=== PATIENT | female | born 1950 | race Caucasian/White ===

== ENCOUNTER 2017-05-18 08:01 | Day surgery (SDC) | payer BC ==
[~2017-05-18] VITALS: Ht 177.8 cm; Wt 107.0 kg
[~2017-05-18 08:01] MED LIST: CEFAZOLIN SOD 1 GM/ ISO 50 ML PREMIX IV ONE
[2017-05-18] MEDS ORDERED: LR 1,000 ML IV SCH ×2 (13:48→14:15)
[2017-05-18] MEDS ORDERED: METOCLOPRAMIDE HCL 10 MG/2 ML VIAL IVP PRN ×2 (14:00→14:15)
[2017-05-18] MEDS ORDERED: MIDAZOLAM HCL 5 MG/5 ML VIAL IVP PRN (14:00)
[2017-05-18] MEDS ORDERED: MORPHINE SULFATE 10 MG/ML VIAL IVP PRN ×3 (14:00)
[2017-05-18] MEDS ORDERED: MORPHINE 4 MG/ML INJ. SYRINGE IVP PRN ×3 (14:15)
[2017-05-18] MEDS ORDERED: D5/0.45 NS 1,000 ML IV SCH (14:52)
[2017-05-18] MEDS ORDERED: MORPHINE SULFATE 10 MG/ML VIAL ONE (15:11)
[2017-05-18] MEDS ORDERED: METOCLOPRAMIDE HCL 10 MG/2 ML VIAL ONE (15:17)
[2017-05-18] MEDS ORDERED: DIPHENHYDRAMINE INJ 50 MG/ML VIAL ONE (15:33)
[2017-05-18] MEDS ORDERED: DIPHENHYDRAMINE INJ 50 MG/ML VIAL IVP ONE (15:45)
[2017-05-18 17:04] VITALS: BP_SYST 119
== END 2017-05-18 17:50 | disposition home or self-care (01) ==
LOC: SDS 08:01 → SMU 08:02 → EDSTATUS 12:50 → SDS 17:50
PROVIDERS: ATTEND Colon & Rectal Surgery
DX: C50.911 Malignant neoplasm of unspecified site of right female breast (principal); D36.0 Benign neoplasm of lymph nodes; M72.0 Palmar fascial fibromatosis [Dupuytren]; E03.9 Hypothyroidism, unspecified; K21.9 Gastro-esophageal reflux disease without esophagitis; M35.3 Polymyalgia rheumatica; M35.00 Sjogren syndrome, unspecified; Z90.49 Acquired absence of other specified parts of digestive tract; Z90.710 Acquired absence of both cervix and uterus; Z98.890 Other specified postprocedural states; Z68.34 Body mass index [BMI] 34.0-34.9, adult; Z79.899 Other long term (current) drug therapy; M19.90 Unspecified osteoarthritis, unspecified site; Z88.8 Allergy status to other drugs, medicaments and biological substances; E66.01 Morbid (severe) obesity due to excess calories; G62.9 Polyneuropathy, unspecified
CPT/HCPCS: 19081; 19281; 19301; 38525; 76098; 78195; 88305; 88307; 88333; 88334; A9541; J0690; J1200; J2270; J2765

== ENCOUNTER 2023-05-09 13:57 | Emergency (ER) | payer BC ==
[~2023-05-09] VITALS: Ht 177.8 cm; Wt 94.3 kg
[2023-05-09 14:12] VITALS: BP_SYST 147; PULSE 89; RESP 19; TEMP 98; O2SAT 98
[2023-05-09] MEDS ORDERED: traMADol HCL HCL 50 MG TABLET (ULTRAM) PO ONE (16:15)
[2023-05-09] MEDS ORDERED: LIDO1ADH14 TP (17:05)
[2023-05-09 17:23] VITALS: BP_SYST 129; PULSE 71; RESP 18; TEMP 97.4; O2SAT 98
== END 2023-05-09 17:25 | disposition home or self-care (01) ==
LOC: SED 13:57
DX: S22.31XA Fracture of one rib, right side, initial encounter for closed fracture (principal); Z88.5 Allergy status to narcotic agent; Z79.899 Other long term (current) drug therapy; X58.XXXA Exposure to other specified factors, initial encounter; Y93.89 Activity, other specified; Y92.89 Other specified places as the place of occurrence of the external cause; Y99.8 Other external cause status
CPT/HCPCS: 71100; 72100-TC; 99284